=== PATIENT | female | born 1990 | race African-American/Black ===

== ENCOUNTER 2019-01-26 14:17 | Emergency (ER) | payer MEDICAID ==
[~2019-01-26] VITALS: Ht 160 cm; Wt 65.3 kg
[2019-01-26] MEDS ORDERED: ALBUTEROL2.5 MG/3 M INH (14:30)
[2019-01-26] MEDS ORDERED: IBUPROFEN800 MG ORAL (14:30)
[2019-01-26 14:40] VITALS: BP 106/88
[2019-01-26] MEDS ORDERED: Cyclobenzaprine 10mg Tab ORAL ONE (14:45)
[2019-01-26] MEDS ORDERED: ROBAXIN-750750 MG PO (14:54)
[2019-01-26] MEDS ORDERED: IBUPROFEN600 MG ORAL (14:54)
[2019-01-26 15:40] VITALS: BP 106/88
--- NOTE | 2019-01-26 15:40 | NUR ---
ER DISCHARGE NOTE: Patient is cleared to be discharged per ERMD, pt is aox4, on room air, with stable vital signs. pt was given dc and prescription instructions, pt was able to verbalize understanding, pt id band removed without complications. pt is able to ambulate with steady gait. pt took all belongings.
--- NOTE | 2019-01-26 17:14 | Emergency Room Report ---
History of Present Illness General Chief Complaint: Lower Back Pain or Injury Source: Patient (GIORGI JONES) Present Illness HPI The patient is a 28 year old female presenting for lower back pain. She states that she tripped and fell one week prior onto her left side. She was seen at another facility and states that imaging was done on her foot and knee. This was unremarkable. Pain of the lower back began 3 days prior without any known provoking factors. Pain is an 8 out of 10 dull ache and does not radiate. Worse with movement. She is using ibuprofen which does help. She denies other symptoms including nausea, vomiting, fever, chills, dysuria, hematuria, vaginal discharge, abdominal pain, incontinence (GIORGI JONES) Allergies: Coded Allergies: BANANA (Verified Allergy, Unknown, 01/26/19) EGG (Verified Allergy, Unknown, 01/26/19) MAYONNAISE (Verified Allergy, Unknown, 01/26/19) Tuna (Verified Allergy, Unknown, 01/26/19) Uncoded Allergies: COD FISH (Allergy, Unknown, 01/26/19) Patient History Past Medical History: see triage record Pertinent Family History: none Last Menstrual Period: on period Reviewed Nursing Documentation: PMH: Agreed; PSxH: Agreed (GIORGI JONES) Nursing Documentation-PMH Past Medical History: No History, Except For Hx Asthma: Yes Hx Neurological Problems: Yes - Sciatica (GIORGI JONES) Review of Systems All Other Systems: negative except mentioned in HPI (GIORGI JONES) Physical Exam Vital Signs Date Time Temp Pulse Resp B/P (MAP) Pulse Ox O2 Delivery O2 Flow Rate FiO2 01/26/19 14:26 98.6 85 16 97 Room Air 01/26/19 14:40 106/88 Sp02 EP Interpretation: reviewed, normal General Appearance: no apparent distress, alert, GCS 15, non-toxic Respiratory: chest non-tender, lungs clear, normal breath sounds, speaking full sentences Cardiovascular #1: regular rate, rhythm, no edema Musculoskeletal: back normal, gait/station normal, normal range of motion, tender - Lumbar paraspinal muscles Neurologic: alert, oriented x3, responsive, motor strength/tone normal, sensory intact, speech normal Psychiatric: judgement/insight normal, memory normal, mood/affect normal, no suicidal/homicidal ideation Skin: normal color, no rash, warm/dry, well hydrated (GIORGI JONES.Britton) Medical Decision Making PA Attestation Dr. Sorensen is my supervising physician. Patient management was discussed with my supervising physician (GIORGI JONES) Diagnostic Impression: Primary Impression: Lumbar strain Qualified Codes: S39.012A - Strain of muscle, fascia and tendon of lower back , initial encounter ER Course The patient is a 28 year old female presenting for lower back pain. Ddx considered include but not limited to lumbar muscle strain, fracture, degenerative disease, contusion, among others PE: Afebrile. NAD There is tenderness to palpation over the lumbar paraspinal muscles. No midline tenderness or step-offs. Full active range of motion is intact. Normal curvature. No CVA tenderness Patient is given ibuprofen and muscle relaxer. Symptoms have improved Urine screen is positive. Patient states that she was up until one week prior and had an . She admits to being sexually active at this time. Risks and benefits of L spine xray discussed due to this finding. She declines xray for now. She is given prescription for Motrin and Robaxin. She is to follow-up with her primary doctor for further evaluation and treatment Laboratory Tests Test 01/26/19 15:10 Urine HCG, Qualitative Positive (NEGATIVE) Lab Results Impression UP + (GIORGI JONES P.A.) Last Vital Signs Date Time Temp Pulse Resp B/P (MAP) Pulse Ox O2 Delivery O2 Flow Rate FiO2 01/26/19 15:40 98.6 85 16 106/88 97 Room Air Status: improved (GIORGI JONES P.A.) Disposition: HOME, SELF-CARE Condition: Improved Scripts Methocarbamol* (ROBAXIN-750*) 750 Mg Tablet 750 MG PO TID, #21 TAB 0 Refills Prov: TERZIANREYNAY P.A. 01/26/19 Ibuprofen* (MOTRIN*) 600 Mg Tablet 600 MG ORAL Q8H PRN for For Pain, #30 TAB 0 Refills Prov: TERZIANGIORGI P.A. 01/26/19 Referrals: NOT CHOSEN IPA/MD,REFERRING (PCP) Patient Instructions: Lumbosacral Strain, Back Pain, Adult Additional Instructions: I discussed my findings with the patient. All questions and concerns have been answered. Treatment and medication compliance have been addressed. I advised the patient that they need to follow up with PMD in 3-5 days. Return to ED if symptoms worsen, new symptoms arise, or if needed for any reason. Patient verbalized understanding of discharge instructions. GIORGI JONES January 26, 2019 17:14 Rakan Sorensen MD January 28, 2019 22:28
== END 2019-01-26 15:40 | disposition home or self-care (01) ==
LOC: EMR 14:52
DX: S39.012A Strain of muscle, fascia and tendon of lower back, initial encounter (principal); W01.0XXA Fall on same level from slipping, tripping and stumbling without subsequent striking against object, initial encounter; Y92.9 Unspecified place or not applicable; Z91.012 Allergy to eggs; Z91.013 Allergy to seafood; Z91.018 Allergy to other foods
CPT/HCPCS: 81025; 99283